=== PATIENT | male | born 1975 ===

== ENCOUNTER 2020-10-25 15:06 | Emergency (ER) | payer OTHER ==
[~2020-10-25] VITALS: Ht 180.3 cm; Wt 93.4 kg
[2020-10-25] MEDS ORDERED: VASOTEC20 M1 PO (15:12)
[2020-10-25] MEDS ORDERED: HYDROCHLOROTHIA25 MG PO (15:13)
[2020-10-25] MEDS ORDERED: SKELAXIN800 MG PO (17:20)
[2020-10-25] MEDS ORDERED: KETO10TA2 PO (17:20)
[2020-10-25] MEDS ORDERED: ACETAMINOPHEN650 M2 PO (19:34)
[2020-10-25] MEDS ORDERED: NABUMETONE750 MG (19:34)
== END 2020-10-25 19:56 | disposition home or self-care (01) ==
LOC: ER 15:06
DX: M54.5 Low back pain (principal); M62.830 Muscle spasm of back